=== PATIENT | male | born 2005 | race Caucasian/White ===

== ENCOUNTER 2025-10-20 16:27 | Emergency (ER) | payer SELFPAY ==
[2025-10-20 17:06] VITALS: BP 139/61; PULSE 78; RESP 18; TEMP 37.6; O2SAT 99
[2025-10-20 17:07] VITALS: BMI 21.8
--- NOTE | 2025-10-20 17:20 | EDNOTE_ITS ---
ED Wound/Laceration-RME/HPI General Chief Complaint: Wound/Laceration Stated Complaint: LAC TO L THUMB Time Seen by Provider: 10/20/25 17:17 Arrival date/time: 10/20/25 16:27 20-year-old male patient came in for evaluation regarding left thumb laceration, incident happened few minutes prior to ER visit while trying to cut something patient sustained 1 cm gaping laceration to the left thumb tip involving the nail. Able to bend and extend the finger without any limitation denies any other injury. Tetanus vaccination is 2 years old. Related Data Previous Rx's ?Medication ?Instructions ?Recorded cephalexin 500 mg capsule 500 mg PO Q8H 7 days #21 cap s 10/20/25 ibuprofen 800 mg tablet 800 mg PO TID PRN pain #30 t abs 10/20/25 Allergies Allergy/AdvReac Type Severity Reaction Status Date / Time No Known Allergies Allergy Verified 10/20/25 16:27 Review of Systems Review of Systems Narrative Review of Systems: Review of system reviewed and within normal limits except mentioned in HPI ED Exam Narrative Physical exam: VITAL SIGNS: Reviewed. GENERAL APPEARANCE: Alert and interactive, follows commands, no acute distress, HEAD AND FACE: Non-traumatic. ENT: PERRL, pink conjunctivitis, eyelid no trauma, Mucous membrane moist. NECK: Supple, nontender, no nuchal rigidity. RECTAL: Deferred. GENITAL: Deferred. NEUROLOGICAL: Gross motor function intact sensory function intact, Appropriate for age. MUSCULOSKELETAL: low back nontender, full range of motion. EXTREMITIES: +1 cm laceration left thumb tip involving the nail, full range of motion. SKIN: Color pink, dry, no rash, no lacerations, no abrasions, no contusions. LYMPHATICS: Deferred. Course Quality Measures none Orders Category Date Time Status Ibuprofen Tab [Motrin Tab] Med 10/20/25 17:19 Discontinued 800 mg PO X1 ONE Lidocaine 1% Pf Vial 5ml [Xylocaine 1% Pf 5 ml] Med 10/20/25 17:19 Discontinued 10 ml INFL X1 ONE Vital Signs Vital signs: Vital Signs Temperature 99.6 F 10/20/25 17:06 Pulse Rate 78 10/20/25 17:06 Respiratory Rate 18 10/20/25 17:06 Blood Pressure 139/61 H 10/20/25 17:06 Pulse Oximetry (%) 99 10/20/25 17:06 Oxygen Delivery Method Room Air 10/20/25 17:06 PROCEDURES: Laceration Laceration 1: Site: other (Left thumb tip) Size (cm): 1 Description: linear Depth: [id number] Amount of anesthesia used (mL): 3 Pre-repair: wound explored and irrigated extensively Skin layer closed with: nylon Suture size (cm): 5-0 Number of sutures: 4 Technique: simple, interrupted Wound / Laceration MDM Narrative MDM Narrative:: 20-year-old male patient came in for evaluation regarding left thumb laceration, incident happened few minutes prior to ER visit while trying to cut something patient sustained 1 cm gaping laceration to the left thumb tip involving the nail. Able to bend and extend the finger without any limitation denies any other injury. Tetanus vaccination is 2 years old. Imaging is not needed at this time. Repair and suturing was done by me see procedure notes. Tetanus vaccination was not given since patient is fully vaccinated and up-to-date. Stable for discharged home Patient data External records reviewed:: None Clinical information provided by:: patient Social determinants that could affect healthcare access:: none Patient has the following chronic illnesses:: None How is presenting disease/condition affected by chronic disease/condition?: uneffected by Evaluation data The following diagnostics were reviewed and interpreted by me:: other (specify) (None) Lab and/or radiology exams considered but not ordered:: None Interpretation Summary: None Medications / Prescriptions Medications or Prescriptions considered but not ordered:: None Medication administrations:: Medication Administration History Discontinued Medications Ibuprofen (Ibuprofen Tab 400 Mg Tablet) 800 mg PO X1 ONE Stop: 10/20/25 17:20 Last Admin: 10/20/25 17:42 Dose: 800 mg Documented By: DO Lidocaine HCl (Lidocaine Inj Pf 1% 5 Ml Vial) 10 ml INFL X1 ONE Stop: 10/20/25 17:20 Last Admin: 10/20/25 17:42 Dose: 5 ml Documented By: DO Comments: only 5ml used by provider Ibuprofen Consultations Consultation(s) initiated? (list below): No Diagnosis Wound Differential Diagnosis: laceration, abscess and avulsion of skin Most likely diagnosis given after review of the tests above:: Left thumb laceration Admission Indicated Admission indicated?: not indicated Admission Request Was there a request for admission?: No Disposition Plan Disposition Plan: Discharge Discharge Attestation Discharge Attestation: The patient and all family members were given an opportunity to ask questions and understood the discharge instructions. Discharge instructions specifically effects, indications for sooner follow up or return to the emergency department, and the expected course of current diagnosis. Patient condition: Stable Discharge Plan Plan Patient Disposition: HOME (Self Care) Discharge Disposition comment: Stable Prescriptions/Referrals Prescriptions/Med Rec: New ibuprofen 800 mg tablet 800 mg PO TID PRN (Reason: pain) Qty: 30 0RF cephalexin 500 mg capsule 500 mg PO Q8H 7 Days Qty: 21 0RF Problem List Clinical Impression: Laceration of thumb Patient/Caregiver Discharge Instructions Discharge Activity: activity as tolerated Education Materials: ED Laceration: All Closures Additional Instructions: Thank you for the opportunity for serving you today. You are stable for dischar ged . You are advised to: Follow-up with your PCP in 1 to 2 days Return to ED for worsening of symptoms Increase oral fluids Take medication as prescribed Daily dressing with bacitracin as needed For removal of sutures in 7 days Print Language: Yakut Stand Alone Forms: [employer] Award Info., Patient Portal Info Letter DIAZ/JORGE Supervising Physician DIAZ/JORGE Supervising Physician: MD Jared
[2025-10-20] MEDS: IBUPROFEN TAB 400 MG TABLET 800 MG PO (17:42)
[2025-10-20] MEDS: LIDOCAINE INJ PF 1% 5 ML VIAL 10 ML INFL (17:42)
== END 2025-10-20 17:55 | disposition home or self-care (01) ==
PROVIDERS: Emergency Provider Emergency Medicine
DX: S61.012A Laceration without foreign body of left thumb without damage to nail, initial encounter (principal); W45.8XXA Other foreign body or object entering through skin, initial encounter
CPT/HCPCS: 12002; 99281; J3490; A9270